=== PATIENT | female | born 1955 | race Caucasian/White ===

== ENCOUNTER 2023-09-06 23:52 | Inpatient (IN) | payer OTHER, SELFPAY ==
[2023-09-06] VITALS (7 sets, daily range): BP systolic 109–122; BP diastolic 42–62; PULSE 2–122; BMI 49.4
[2023-09-06 21:59] LABS: % Basophils 0.5 % (0-2); % Eosinophils 6.7 % (0-6); % Immature Granulocytes 0.5 % (0-0.5); % Lymphocytes 11.1 % (20.5-51.1); % Monocytes 8.9 % (1.7-9.3); % Neutrophils 72.3 % (42.2-75.2); Absolute Eosinophils 0.3 10^3/uL (0-0.7); Absolute Lymphocytes 0.5 10^3/uL (1.2-3.4); Absolute Monocytes 0.4 10^3/uL (0.1-0.6); Hematocrit 24.4 % (37.0-47.0); Hemoglobin 7.6 g/dL (12.0-16.0); Mean Corp Hgb Conc. 31.1 g/dL (33.0-37.0); Mean Corpuscular Hgb 26.6 pg (27.0-31.0); Mean Corpuscular Volume 85.3 fL (81.0-99.0); Mean Platelet Volume 9.4 fL (7.4-10.4); Nucleated Red Blood Cells % 0 %; Platelet Count 127 10^3/uL (130-400); Red Blood Cell Count 2.86 10^6/uL (4.20-5.40); White Blood Cell Count 4.2 10^3/uL (4.8-10.8)
[2023-09-06 22:10] LABS: INR 2.82
[2023-09-06 22:12] LABS: Lactic Acid 1.2 mmol/L (0.7-2.0)
--- NOTE | 2023-09-06 22:20 | ED.GENMED ---
History of Present Illness
General
Chief Complaint: Breathing Problem
Source: patient
Exam Limitations: none
Time Seen by Provider: 09/06/23 22:12
Travel History
Have you had any contact with someone who has COVID-19?: No
Do you have any symptoms of coronavirus? Fever > 100 degrees, chills, cough, shortness of breath, sore throat, loss of taste or smell, muscle aches, or headache?: No
History of Present Illness
History of Present Illness:
See MDM
Past History
Past History
ED Past Medical History: Arrthythmia, CHF, COPD and HTN
ED Past Surgical History: None
Social History
Tobacco: Non-smoker
Alcohol: None
Phy Exam
Physical Exam
Physical Exam:
See MDM
Scores
Heart Failure Risk
Heart Failure Risk Score: Yes
History of Stroke or TIA: No
History of intubation for respiratory distress: No
Heart rate on ED arrival >/= 110: Yes
SaO2 <90% on arrival on room air: Yes
HR >/=110 during 3min walk test (or too ill to perform test): Yes
ECG has acute ischemic changes: No
Urea >/=12mmol/L (BUN 33.6mg/dL): No
Serum CO2>/=35mmol/L: No
Troponin I or T elevated to AR Level (0.4mg/dL): No
NT-proBNP >/=5,000ng/L (5,000pg/ml): No
HF Risk Score: 3
Admission Status: HIGH RISK 15.9% Consider SNF treatment or admission to hospital
Course
Orders/Labs/Results
Orders:
Orders
09/06/23 21:38
Electrocardiogram (*1) Urgent
Reason for Study: Other
Other Reason for Exam: Respiratory Distress
Cardiac Monitoring- Treatment ONCE
EKG- Treatment ONCE
IV Insert/Care/Rem.- Treatment PRN
CR Chest Portable - 1 View Urgent
Comment:
Reason For Exam: respiratory distress
Reason Study Needs to be Portable: Patient Unstable
O2 Therapy [RESP] Urgent
Titrate/Wean O2 to maintain O2 sat greater than (%): 93
Special Instructions: TO MAINTAIN CONTINUOUS O2 SATS >/= 93%
Pulse Ox/cont/shift [RESP] Urgent
Quantity: 1
Special Instructions: continuous pulse ox
09/06/23 21:54
Complete Blood Count/With Diff Urgent
Comprehensive Metabolic Panel Urgent
Lactic Acid Q4H
Comment: WITH 1ST SET OF BLOOD CULTURES,CANCEL 2ND LACTIC ACID IF FIRST <2
NT-proBNP Urgent
Prothrombin Time Urgent
Troponin I Urgent
Blood Culture Q30M
LEATHA Source: Blood/Venous
Specimen Description:
Comment: FROM SEPARATE SITES
09/06/23 22:20
Furosemide [Lasix] 80 mg IV NOW STA
09/06/23 22:28
COVID-19 Antigen Urgent
Source: Nasal Swab
Blood Culture Q30M
LEATHA Source: Blood/Venous
Specimen Description:
Comment: FROM SEPARATE SITES
Abnormal Lab Results
09/06/23
21:54
WBC 4.2 L 10^3/uL
(4.8-10.8)
RBC 2.86 L 10^6/uL
(4.20-5.40)
Hgb 7.6 L g/dL
(12.0-16.0)
Hct 24.4 L %
(37.0-47.0)
MCH 26.6 L pg
(27.0-31.0)
MCHC 31.1 L g/dL
(33.0-37.0)
RDW 20.0 H %
(11.5-14.5)
Plt Count 127 L 10^3/uL
(130-400)
Absolute Lymphs (auto) 0.5 L 10^3/uL
(1.2-3.4)
Lymphocytes % 11.1 L %
(20.5-51.1)
Eosinophils % 6.7 H %
(0-6)
PT 30.0 H Sec
(11.4-14.6)
Carbon Dioxide 35 H mmol/L
(22-30)
BUN 25 H mg/dl
(7-17)
Creatinine 1.1 H mg/dL
(0.6-1.0)
Glucose 116 H mg/dl
(70-99)
Calcium 8.1 L mg/dl
(8.4-10.2)
Albumin 3.0 L g/dl
(3.5-5.0)
09/06/23 21:54
09/06/23 21:54
Vital Signs
Initial and Last Documented VS:
Initial Vital Signs
Pulse Resp Pulse Ox
101 28 98
09/06/23 21:40 09/06/23 21:40 09/06/23 21:40
Last Documented Vital Signs
Temp Pulse Resp BP Pulse Ox
98.7 F 94 28 121/42 99
09/06/23 21:41 09/06/23 22:30 09/06/23 22:30 09/06/23 22:30 09/06/23 22:30
MDM/Problems Addressed
Differential Diagnosis Includes:
HPI and MDM Narrative:
68-year-old female presenting with shortness of breath. Patient noticed worsening symptoms over the past few days. She has a history of COPD and CHF. Patient was placed on BiPAP which was continued on arrival. Patient states she required
admission to an outside hospital few weeks ago for CHF exacerbation.
On arrival, respiratory continue BiPAP. Patient feeling somewhat better. She states she is on 3 to 3-1/2 L of oxygen chronically. She is on BiPAP at nighttime as well. She takes Bumex. She has history of paroxysmal A-fib on Xarelto and states
she was recently cardioverted. Patient currently in A-fib
Given her significant respiratory distress, will continue BiPAP. Portable chest x-ray confirms pulmonary edema. Will give IV Lasix
Physical exam
General: Uncomfortable, respiratory distress
HEENT: protecting airway
Neck: supple
CV: No evidence of cyanosis. Tachycardic and regular
Resp: No accessory muscle use. Crackles throughout
Abd: Non-distended
Extremities: Significant chronic appearing bilateral leg edema with venous stasis skin changes
Neuro: alert
Psych: Mildly anxious
Skin: Intact
Problems Addressed including Acute and Chronic Conditions affecting care:
1. CHF exacerbation
Acuity: acute
Prognosis: unstable
Details: Will continue BiPAP. Will give IV light
2. Hypoxia
Acuity: acute
Prognosis: stable
Details: Will continue BiPAP and supplemental oxygen
Updates
After Lasix, patient feeling somewhat better. Will continue BiPAP and admit
Differential Diagnosis (but not limited to): Pneumonia, CHF exacerbation, A-fib
Testing considered: D-dimer but she is anticoagulated
Drug therapy (if applicable): OTC meds, please see d/c instruction regarding Rx drugs
Amount and/or Complexity of Data Reviewed
Clinical info obtained from: Patient
External data reviewed: N/A
Labs I independently reviewed (but not limited to): Elevated BNP
Radiology: X-ray independently reviewed: Chest x-ray consistent with pulmonary edema
Pulse Ox: hypoxic
EKG independently reviewed: A-fib, normal axis, no STEMI
Packaging Supervisor: A-fib
Critical Care: The high probability of a clinically significant, sudden or life threatening deterioration of the cardiopulmonary system(s) required my full and direct attention, intervention and personal management. The aggregate critical care time
was 33 minutes. This time is in addition to time spent performing reported procedures but includes the following:
[x] Data Review and interpretation
[x] Patient assessment and monitoring of vital signs
[x] Documentation
[x] Medication orders and management
Risk of Complication:
Social Determinants of health: Good social support
Discussed with other providers: Hospitalist
Escalation of Care includes Admit/Obs: Given the pulm edema BiPAP, will continue Lasix and admit
Occasional wrong word or 'sound a like' substitutions may have occurred due to the inherent limitations of voice recognition software. Read the chart carefully and recognize, using context, where substitutions have occurred.
*Critical Care Note
Total Time (30-74mins, 75-104mins- exclusive of procedures): 33 min
ED Attending Note
-
Portions of this chart may have been created with voice recognition software.� Occasional wrong word or��sound alike� substitutions may have occurred due to the inherent limitations of voice recognition software.
Discharge Plan
Departure
Patient Disposition: Admit
Date of Disposition: 09/06/23
Time of Disposition: 23:01
Admit to: Telemetry
Presentation/result/management discussed w/ accepting MD/DO: Hospitalist
Discharge Problem:
Pulmonary edema, Hypoxia, Anemia
Prescriptions:
No Action
acetaminophen 325 mg Tablet
650 mg PO Q6H PRN (Reason: mild pain)
ipratropium-albuterol 0.5 mg-3 mg(2.5 mg base)/3 mL Solution For Nebulization
3 ml INHALATION R Q6 PRN (Reason: sob/wheezing)
ipratropium-albuterol 0.5 mg-3 mg(2.5 mg base)/3 mL Solution For Nebulization
3 ml INHALATION R QID
ammonium lactate 12 % Lotion
1 applic TOPICAL BID
Patient Comments:
09/06/2023: apply to affected leg, for bacterial infection of leg
lorazepam 0.5 mg Tablet
0.5 mg PO Q4H PRN (Reason: anxiety)
ferrous sulfate 325 mg (65 mg iron) Tablet
325 mg PO DAILY
docusate sodium 100 mg Capsule
100 mg PO DAILY PRN (Reason: constipation)
bumetanide 1 mg Tablet
1 mg PO DAILY
metoprolol succinate 25 mg Tablet Extended Release 24 Hr
25 mg PO DAILY
loratadine [Claritin] 10 mg Tablet
10 mg PO DAILY
carboxymethylcellulose sodium [Refresh Plus] 0.5 % Dropperette
1 drp BOTH EYES Q12H PRN (Reason: dry eyes)
sodium chloride 0.65 % Aerosol,[place]
1 spray INTRANASAL PRN PRN (Reason: rhinitis)
rivaroxaban 20 mg Tablet
20 mg PO DAILY
Spiriva Respimat 2.5 mcg/actuation Mist
1 inh INHALATION R DAILY
fluticasone furoate-vilanterol [Breo Ellipta] 100-25 mcg/dose Blister With Device
1 inh INHALATION R DAILY
zinc oxide 20 % Paste
1 ea TOPICAL TID
Patient Comments:
09/06/2023: apply intergluteal cleft
Interventions
Interventions:
*Risk Screen - Suicide Last Done: 09/06/23 21:41
*General Assessment Last Done: 09/06/23 22:12
*Neglect/Abuse Screening Last Done: 09/06/23 21:41
ED- Fall Risk Assessment Last Done: 09/06/23 21:41
*ED COVID-19 Vaccine History Last Done: 09/06/23 21:41
ED- Cardiac Assessment Last Done: 09/06/23 22:10
ED- Pulmonary Assessment Last Done: 09/06/23 22:10
Discharge Date and Time
Print Language: ICELANDIC
[2023-09-06 22:25] LABS: NT-proBNP 2580 pg/ml; Troponin I < 0.012 ng/ml
[2023-09-06 22:26] LABS: ALT (SGPT) 12 U/L (0-35); AST (SGOT) 20 U/L (14-36); Alkaline Phosphatase 70 U/L (38-126); Blood Urea Nitrogen 25 mg/dl (7-17); Calcium 8.1 mg/dl (8.4-10.2); Carbon Dioxide 35 mmol/L (22-30); Estimated Creatinine Clearance 82 ml/min; Glucose 116 mg/dl (70-99); Total Bilirubin 0.7 mg/dl (0.2-1.3); Total Protein 6.8 g/dl (6.3-8.2); eGFR 54.73
[2023-09-06] MEDS: LASIX 80 MG IV (22:27)
[2023-09-06 22:41] LABS: Chloride 98 mmol/L (98-107); Potassium 4.6 mmol/L (3.5-5.1); Sodium 135 mmol/L (135-145)
[2023-09-06 22:51] LABS: COVID-19 Antigen Negative (Negative)
--- NOTE | 2023-09-06 23:41 | HPS.HSE ---
Family Physician
-
Family Physician: Fermín Jon
Chief Complaint
-
Shortness of breath
History of Present Illness
This is a 68-year-old female with past medical history significant for CHF, COPD chronically on 3 L and has been on BiPAP intermittently at the retirement facility, atrial fibrillation, morbid obesity who presents to the emergency department
from [facility] where she is undergoing rehab for worsening shortness of breath over the last 3 days.
She was recently admitted at [facility] for Similar Symptoms. She Was Diagnosed with Congestive Heart Failure, Pneumonia Was Ruled out. She Also Had Hemoptysis and Had to Be Intubated for Airway Protection. Bronc was avoided bleeding stopped
spontaneously. She had to be transfused with 1 unit of blood for hemoglobin of 7.8. Patient reports known history of iron deficiency anemia status post colonoscopy about 20 years ago.
Since her discharge from the hospital the patient had been improving up until about 4 days ago. She reported that she has not been getting her diuretics as well as her inhaler treatments for about 4 days. She started complaining 2 days ago. Today
an x-ray was performed and patient was noted to have pulmonary edema and was sent to the emergency department.
She denies any fevers or chills. She reports a chronic cough with white sputum and unchanged from baseline. She denies any nausea or vomiting.
In the ED she arrived on BiPAP with a temperature of 98, blood pressure 121/40, pulse of 94, respiratory rate of 28 and
Percent on BiPAP. ECG shows atrial fibrillation at a rate of [address] or T wave changes. Chest x-ray with pulmonary interstitial edema and no consolidations or effusions. CBC was mostly unremarkable except for hemoglobin of 7.6
and a platelet of 127. Chemistries notable for a creatinine of 1.1, potassium 4.6 bicarb of 35. proBNP was 2500.
Medical History
Past Medical History
Past Medical History: Reports Arrhythmia, CHF and COPD
Additional Past Medical History:
Atrial fibrillation
Past Surgical History: Reports None
Social History
Tobacco: Former Smoker
Alcohol: None
Drug: None
Personal: Single
Living: Long Term
Employment: Retired
Family History
Family History: Not pertinent
Allergies / Home Medications
Allergies reflects when Allergies were last updated in [facility].
Home Medications with original date entered in [facility]
Allergy/Medication List:
Allergies
Allergy/AdvReac Type Severity Reaction Status Date / Time
adhesive tape Allergy Rash Verified 09/06/23 21:39
Home Medications
acetaminophen 325 mg tablet 650 mg PO Q6H PRN mild pain 09/06/23
ammonium lactate 12 % lotion 1 applic topical BID 09/06/23
bumetanide 1 mg tablet 1 mg PO DAILY 09/06/23
carboxymethylcellulose sodium 0.5 % eye drops in a dropperette (Refresh Plus) 1 drp BOTH EYES Q12H PRN dry eyes 09/06/23
docusate sodium 100 mg capsule 100 mg PO DAILY PRN constipation 09/06/23
ferrous sulfate 325 mg (65 mg iron) tablet 325 mg PO DAILY 09/06/23
fluticasone furoate 100 mcg-vilanterol 25 mcg/dose inhalation powder (Breo Ellipta) 1 inh inhalation R DAILY 09/06/23
ipratropium 0.5 mg-albuterol 3 mg (2.5 mg base)/3 mL nebulization soln 3 ml inhalation R Q6 PRN sob/wheezing 09/06/23
ipratropium 0.5 mg-albuterol 3 mg (2.5 mg base)/3 mL nebulization soln 3 ml inhalation R QID 09/06/23
loratadine 10 mg tablet (Claritin) 10 mg PO DAILY 09/06/23
lorazepam 0.5 mg tablet 0.5 mg PO Q4H PRN anxiety 09/06/23
metoprolol succinate 25 mg tablet,extended release 24 hr 25 mg PO DAILY 09/06/23
rivaroxaban 20 mg tablet 20 mg PO DAILY 09/06/23
sodium chloride 0.65 % nasal spray aerosol 1 spray intranasal PRN PRN rhinitis 09/06/23
tiotropium bromide 2.5 mcg/actuation mist for inhalation (Spiriva Respimat) 1 inh inhalation R DAILY 09/06/23
zinc oxide 20 % topical paste 1 ea topical TID 09/06/23
Review of Systems
-
History Source: Patient
Constitutional: Reports No Symptoms
EENT: Reports No Symptoms
Respiratory: Reports Cough and Trouble Breathing
Cardiac: Reports No Symptoms
Abdomen/GI: Reports No Symptoms
: Reports No Symptoms
Musculoskeletal: Reports No Symptoms
Skin: Reports No Symptoms
Neurological: Reports No Symptoms
Endocrine: Reports No Symptoms
Hematologic/Lymphatic: Reports No Symptoms
Psych: Reports No Symptoms
Physical Exam
Vital Signs
Vital Signs
Temp Pulse Resp BP Pulse Ox
98.7 F 96 15 122/62 97
09/06/23 21:41 09/06/23 23:30 09/06/23 23:30 09/06/23 23:30 09/06/23 23:15
Physical Exam
General: Well Developed, Respiratory Distress and Morbidly Obese
HEENT: NormoCephalic, Anicteric, Moist mucous membranes, Atraumatic, PERRLA and Oxygen
Respiratory: Wheezes, Crackles and Decreased Breath Sounds
Cardiac: S1/S2, Irregular Rhythm and Peripheral Edema
Breast: Deferred by me
GI: Soft, Non Tender and Non Distended
Rectal: Deferred by Provider
Genito-urinary: Deferred by me
Musculoskeletal: No Clubbing, No Cyanosis, Edema, Left Lower Extremity and Edema, Right Lower Extremity
Skin: Warm, Dry and Rash
Neuro: AO x 3
Hematologic/Lymphatic: No Lymphadenopathy
Psych: Calm
Laboratory Results
-
09/06/23 21:54
09/06/23 21:54
Laboratory Results
PT 30.0 Sec (11.4-14.6) H 09/06/23 21:54
INR 2.82 09/06/23 21:54
Lactic Acid 1.2 mmol/L (0.7-2.0) 09/06/23:54
Total Bilirubin 0.7 mg/dl (0.2-1.3) 09/06/23:54
AST 20 U/L (14-36) 09/06/23:54
ALT 12 U/L (0-35) 09/06/23:54
Alkaline Phosphatase 70 U/L (38-126) 09/06/23:54
Troponin I < 0.012 ng/ml 09/06/23:54
Data Reviewed
-
Diagnostic Radiology: Image Personally Visualized and interpreted and Report Reviewed by me
Medical Tests (Nuc Med, Echo, EKG etc): Report Reviewed by me
Lab Data: Labs Reviewed by me
Old Records: Reviewed
Impression/Plan
-
IMPRESSION:
68 F with h/o AFIB, CHF, COPD on 3 L home O2 and BIPAP dependent intermittently who presents with shortness of breath worsening over 3 days after not receiving diuretics and inhalers at rehab. No fevers or chills. Xray with pulm edema and w/o
consolidation. Lungs with crackles and wheezes. Cough productive of white sputum. No leukocytosis. ECG with afib, rate controlled.
PLAN:
1. COPD Exacerbation - Moderate COPD exacerbation in patient with significantly poor baseline. No signs of acute infection. WOB noted, improving on bipap.
- admit to IMU for now
- continue bipap 10/5
- prednisone 40mg iv q 12
- continue duonebs RTC and prn
- continue long acting inhaled beta agonist and inhaled steroids for now
- she is dependent on bipap hs and unlikely to be weaned off prior to discharge.
2. CHF exacerbation - Mild CHF exacerbation in the setting of interrupted meds. Peripheral edema noted, improved compared to prior hospitalization. Elevated BNP.
- lasix 60 mg iv q 12 for now
- daily weights and i/os
- fluid and salt restriction
3.AFIB - Rate is moderately controlled
- continue ac with rivaroxaban
- continue metoprolol 25 daily
-
4. TANIA - Chronic TANIA. Hgb 7.6
- transfuse of hgb < 7
- check iron panel in am
DVT PPX - On rivaroxaban
Full Code
[2023-09-07] VITALS (16 sets, daily range): BP systolic 106–137; BP diastolic 55–81; PULSE 2–80; O2SAT 90; BMI 43.0
[2023-09-07] MEDS: SOLU-MEDROL PF 40 MG IV ×3 (01:28→21:10)
--- NOTE | 2023-09-07 02:42 | PTCARENOTE ---
pt admitted from the ED- pt is AAOx3- VSS. pt tearful about situation, wishing she could go home. a-fib on the monitor. arrived on bipap 96%. PW intact, MASD to groin and under breasts, will order desenex. left posterior thigh DTI- foam applied. pt
is tachypneic, and SOB on exertion. pt oriented to room, call duran within reach, care ongoing.
[2023-09-07 05:16] LABS: Hematocrit 26.5 % (37.0-47.0); Hemoglobin 8.4 g/dL (12.0-16.0); Mean Corp Hgb Conc. 31.7 g/dL (33.0-37.0); Mean Corpuscular Volume 85.2 fL (81.0-99.0); Mean Platelet Volume 9.6 fL (7.4-10.4); Platelet Count 144 10^3/uL (130-400); Red Blood Cell Count 3.11 10^6/uL (4.20-5.40); Red Cell Dist. Width 19.9 % (11.5-14.5); White Blood Cell Count 4.7 10^3/uL (4.8-10.8)
[2023-09-07 05:42] LABS: Blood Urea Nitrogen 24 mg/dl (7-17); Calcium 8.4 mg/dl (8.4-10.2); Carbon Dioxide 33 mmol/L (22-30); Chloride 100 mmol/L (98-107); Estimated Creatinine Clearance 76 ml/min; Glucose 128 mg/dl (70-99); Potassium 4.5 mmol/L (3.5-5.1); Sodium 137 mmol/L (135-145); eGFR 54.73
[2023-09-07] MEDS: SYMBICORT 80/4.5 MCG INHALER 2 PUFF INH ×2 (07:56→19:39)
[2023-09-07] MEDS: DUONEB 3 ML INH ×4 (07:57→19:38)
[2023-09-07] MEDS: SPIRIVA RESPIMAT 2.5 MCG 1 PUFF INH (07:57)
[2023-09-07] MEDS: LASIX 60 MG IV ×2 (08:07→15:13)
[2023-09-07] MEDS: TOPROL XL 25 MG PO (08:08)
[2023-09-07] MEDS: DESENEX/MITRAZOL/ZEASORB 1 APPLIC TOPICAL ×2 (08:08→20:19)
[2023-09-07] MEDS: CLARITIN 10 MG PO (08:08)
[2023-09-07] MEDS: XARELTO 20 MG PO (08:08)
[2023-09-07] MEDS: FEOSOL PO (08:09)
[2023-09-07] MEDS: LAC HYDRIN, AM LACTIN LOTION 1 APPLIC TOPICAL ×2 (08:16→20:20)
[2023-09-07] MEDS: ZINC OXIDE OINTMENT 1 APPLIC TOPICAL ×3 (08:16→21:10)
--- NOTE | 2023-09-07 09:50 | CARDSERVLU ---
Echocardiogram with Lumason completed after protocol screening completed. Allergies verified.
Patent IV site: __R AC___
IV site flushed with 0.9% NaCl pre and post administration.
Diluted bolus method utilized to enhance visualization of ventricular garcia.
Total volume given: __2.5__ mL
Patient tolerated all procedures well without complications.
--- NOTE | 2023-09-07 10:00 | PTCARENOTE ---
Patient with labored breathing this morning, dyspnea at rest, trailing off at end of sentences. She reports she is struggling to breath. RT to bedside and patient placed back on BiPAP. Morning Lasix IV given, pt able to urinate 850 mls. Pt feeling
better following 2 hours of BiPAP. Then PT worked with patient and she got into the chair. PT then needing BSC and pt assisted x2 out of chair onto commode. Pt remains on 5L NC. Pt has no complaints at this time. Assessment, care and VS as charted.
--- NOTE | 2023-09-07 10:05 | RESPNOTE ---
patient with more urine output this morning after LASIX, WOB improved. break from bipap at this time. patient now on 5L O2, SpO2 94%, RR 20. ready for breakfast. baseline O2 3.5-4L.
[2023-09-07] MEDS: FEOSOL 325 MG PO (15:36)
--- NOTE | 2023-09-07 15:53 | W.PN.HOSP.TC ---
Today's Communication/Plan
-
cont iv diuresis
iv steroids
wean o2
Assessment / Plan
Assessment / Plan
Physical Exam
General: Well Developed, Respiratory Distress and Morbidly Obese
HEENT: NormoCephalic, Anicteric, Moist mucous membranes, Atraumatic, PERRLA and Oxygen
Respiratory: Wheezes, Crackles and Decreased Breath Sounds
Cardiac: S1/S2, Irregular Rhythm and Peripheral Edema
Breast: Deferred by me
GI: Soft, Non Tender and Non Distended
Rectal: Deferred by Provider
Genito-urinary: Deferred by me
Musculoskeletal: No Clubbing, No Cyanosis, Edema, Left Lower Extremity and Edema, Right Lower Extremity
Skin: Warm, Dry and Rash
Neuro: AO x 3
Hematologic/Lymphatic: No Lymphadenopathy
Psych: Calm
IMPRESSION:
68 F with h/o AFIB, CHF, COPD on 3 L home O2 and BIPAP dependent intermittently who presents with shortness of breath worsening over 3 days after not receiving diuretics and inhalers at rehab. No fevers or chills. Xray with pulm edema and w/o
consolidation. Lungs with crackles and wheezes. Cough productive of white sputum. No leukocytosis. ECG with afib, rate controlled.
PLAN:
#COPD Exacerbation - Moderate COPD exacerbatio most likely exacerbated by CHF exac
- admit to IMU for now
- continue bipap 10/5
- prednisone 40mg iv q 12
- Cont iv diuresis
- continue duonebs RTC and prn
- continue long acting inhaled beta agonist and inhaled steroids for now
#CHF exacerbation, unknown type
-apparently some component of non compliance v needing dosage adjustment
- lasix 60 mg iv q 12 for now
- daily weights and i/os
- fluid and salt restriction
-ECHO
#AFIB - Rate is moderately controlled
- continue ac with rivaroxaban
- continue metoprolol 25 daily
#TANIA - Chronic TANIA. Hgb 7.6
- transfuse of hgb < 7
- check iron panel
DVT PPX - On rivaroxaban
Full Code
Anticipated Discharge: > 48 hours
Subjective/Interval History
-
Date of Service: September 07, 2023
Off BiPAP, feels much better
Objective Data
-
Labs:
Laboratory Results
09/07/23
04:53
WBC 4.7 L
Hgb 8.4 L
Hct 26.5 L
Plt Count 144
Sodium 137
Potassium 4.5
Chloride 100
Carbon Dioxide 33 H
BUN 24 H
Creatinine 1.1 H
Glucose 128 H
Calcium 8.4
Vital Signs:
Vital Signs
Temp Pulse Resp BP Pulse Ox
97.8 F 86 20 115/62 94
09/07/23 15:36 09/07/23 15:40 09/07/23 15:40 09/07/23 15:13 09/07/23 15:40
I&O
09/06/23 09/07/23 09/08/23
06:59 06:59 06:59
Intake Total 240 / 240
Output Total 1400 / 1400 850 / 850
Balance -1400 / -1400 -610 / -610
Review of Systems
-
History Source: Patient
All other systems: Not reviewed unless documented
Data Reviewed
-
CT Scan: Image personally visualized and interpreted and Report Reviewed by me
Labs: Labs Reviewed by me
--- NOTE | 2023-09-07 16:38 | CM ---
Addendum entered by Naty Pope RN 09/07/23 17:05:
Spoke with [facility]; the patient was there in short term rehab and not on a bed hold.
Plan continue to follow patient's mobility and home O2 needs.
Plan may benefit from home O2 assessment to qualify patient for O2 insurance coverage.
Plan home with referral to [facility].
Original Note:
Patient from [facility] with Dx COPD exacerbation, CHF exacerbation. O2 5L. BiPAP. Receiving IV Lasix, IV Solumedrol. PT Eval; requires assist of 2, recommends skilled rehab. OT Eval pending.
Met with patient, vern Smith & daughter in [facility];
the patient resides alone in a 1 story house in [place]
She does not drive and had food delivery, Meals on Wheels, PACE program and SNAP. She denies food insecurity.
The patient was independent in ADLs and ambulation at home prior to her admission to [facility], then needed assistance and went to [facility].
DME - RW, w/c, commode, grabber, leg auto body shop manager strap, lift chair, electric bed, home O2 concentrator/portable & BiPAP through [facility]
VN - prior [facility]
SNF - [facility]
PCP - Anthony Lanier
Pharmacy - [facility]
Patient, son & KIMBERLY state that [facility] SN[facility] was not a good experience and patient will not be returning there or to any other SNF. She wants to go home at d/c with [facility]. The son & DIL live near patient in [place] and can assist post
d/c.
Patient states she is paying out of pocket for home O2 ($178/month) and would like to see if she can qualify for home O2 insurance coverage prior to d/c.
Plan continue to follow patient's mobility and home O2 needs.
Plan may benefit from home O2 assessment to qualify patient for O2 insurance coverage.
Plan home with referral to [facility] .
[2023-09-07 17:29] LABS: Iron 46 ug/dl (37-170)
[2023-09-07 17:38] LABS: Percent Saturation 15 % (20-50); Total Iron Binding Capacity 294 ug/dl (265-497)
[2023-09-07 18:10] LABS: Ferritin 8.6 ng/ml (11.1-264.0)
[2023-09-07 18:30] LABS: Troponin I < 0.012 ng/ml
[2023-09-07] MEDS: MUCINEX 600 MG PO (20:20)
[2023-09-08] VITALS (16 sets, daily range): BP systolic 101–149; BP diastolic 61–101; PULSE 2–78; O2SAT 96; BMI 45.6
[2023-09-08 05:25] LABS: Hematocrit 25.4 % (37.0-47.0); Hemoglobin 7.8 g/dL (12.0-16.0); Mean Corp Hgb Conc. 30.7 g/dL (33.0-37.0); Mean Corpuscular Hgb 26.4 pg (27.0-31.0); Mean Corpuscular Volume 86.1 fL (81.0-99.0); Mean Platelet Volume 10.1 fL (7.4-10.4); Platelet Count 138 10^3/uL (130-400); Red Blood Cell Count 2.95 10^6/uL (4.20-5.40); Red Cell Dist. Width 19.3 % (11.5-14.5); White Blood Cell Count 3.5 10^3/uL (4.8-10.8)
[2023-09-08 05:51] LABS: Blood Urea Nitrogen 40 mg/dl (7-17); Calcium 8.3 mg/dl (8.4-10.2); Carbon Dioxide 35 mmol/L (22-30); Chloride 98 mmol/L (98-107); Estimated Creatinine Clearance 70 ml/min; Glucose 147 mg/dl (70-99); Potassium 4.6 mmol/L (3.5-5.1); Sodium 138 mmol/L (135-145); eGFR 49.31
[2023-09-08] MEDS: MUCINEX 600 MG PO ×2 (07:59→19:46)
[2023-09-08] MEDS: CLARITIN 10 MG PO (07:59)
[2023-09-08] MEDS: COLACE 100 MG PO (07:59)
[2023-09-08] MEDS: TOPROL XL 25 MG PO (07:59)
[2023-09-08] MEDS: FEOSOL 325 MG PO (07:59)
[2023-09-08] MEDS: LASIX 60 MG IV ×2 (08:00→15:59)
[2023-09-08] MEDS: DESENEX/MITRAZOL/ZEASORB 1 APPLIC TOPICAL ×2 (08:03→19:45)
[2023-09-08] MEDS: SYMBICORT 80/4.5 MCG INHALER 2 PUFF INH ×2 (08:03→19:53)
[2023-09-08] MEDS: SPIRIVA RESPIMAT 2.5 MCG 1 PUFF INH (08:03)
[2023-09-08] MEDS: ZINC OXIDE OINTMENT 1 APPLIC TOPICAL ×3 (08:03→21:13)
[2023-09-08] MEDS: LAC HYDRIN, AM LACTIN LOTION 1 APPLIC TOPICAL ×2 (08:03→19:45)
[2023-09-08] MEDS: DUONEB INH (08:03)
[2023-09-08] MEDS: SOLU-MEDROL PF 40 MG IV ×2 (09:39→21:13)
[2023-09-08] MEDS: VENTOLIN NEBULES 2.5 MG INH ×3 (11:19→19:53)
--- NOTE | 2023-09-08 14:07 | W.PN.HOSP.TC ---
Today's Communication/Plan
-
cont iv diuresis today - switch to PO tomorrow
Assessment / Plan
Assessment / Plan
Physical Exam
General: Well Developed, Respiratory Distress and Morbidly Obese
HEENT: NormoCephalic, Anicteric, Moist mucous membranes, Atraumatic, PERRLA and Oxygen
Respiratory: Wheezes, Crackles and Decreased Breath Sounds
Cardiac: S1/S2, Irregular Rhythm and Peripheral Edema
Breast: Deferred by me
GI: Soft, Non Tender and Non Distended
Rectal: Deferred by Provider
Genito-urinary: Deferred by me
Musculoskeletal: No Clubbing, No Cyanosis, Edema, Left Lower Extremity and Edema, Right Lower Extremity
Skin: Warm, Dry and Rash
Neuro: AO x 3
Hematologic/Lymphatic: No Lymphadenopathy
Psych: Calm
IMPRESSION:
68 F with h/o AFIB, CHF, COPD on 3 L home O2 and BIPAP dependent intermittently who presents with shortness of breath worsening over 3 days after not receiving diuretics and inhalers at rehab. No fevers or chills. Xray with pulm edema and w/o
consolidation. Lungs with crackles and wheezes. Cough productive of white sputum. No leukocytosis. ECG with afib, rate controlled.
PLAN:
#COPD Exacerbation - Moderate COPD exacerbatio most likely exacerbated by CHF exac
- admit to IMU for now
- continue bipap 10/5 as needed
- prednisone 40mg iv q 12�transition to prednisone tomorrow
- Cont iv diuresis
- continue duonebs RTC and prn
- continue long acting inhaled beta agonist and inhaled steroids for now
#CHF exacerbation, acute HFpEF
-apparently some component of non compliance v needing dosage adjustment
- lasix 60 mg iv q 12 for now
- daily weights and i/os; BMP
- fluid and salt restriction
--EF 606-65% -
-Anticipate switching back to bumex starting tomorrow
#AFIB - Rate is moderately controlled
- continue ac with rivaroxaban
- continue metoprolol 25 daily
#TANIA - Chronic TANIA. Hgb 7.6
- transfuse of hgb < 7
- check iron panel
DVT PPX - On rivaroxaban
Full Code
Anticipated Discharge: 24 - 48 hours
Subjective/Interval History
-
Date of Service: September 08, 2023
Feels better although still having exertional shortness of breath, not at baseline
Objective Data
-
Labs:
Laboratory Results
09/08/23
05:01
WBC 3.5 L
Hgb 7.8 L
Hct 25.4 L
Plt Count 138
Sodium 138
Potassium 4.6
Chloride 98
Carbon Dioxide 35 H
BUN 40 H
Creatinine 1.2 H
Glucose 147 H
Calcium 8.3 L
Vital Signs:
Vital Signs
Temp Pulse Resp BP Pulse Ox
98.2 F 66 19 104/66 96
09/08/23 11:30 09/08/23 11:31 09/08/23 11:31 09/08/23 10:14 09/08/23 11:31
I&O
09/07/23 09/08/23 09/09/23
06:59 06:59 06:59
Intake Total 240 / 240
Output Total 1400 / 1400 1300 / 1300
Balance -1400 / -1400 -1060 / -1060
Review of Systems
-
History Source: Patient
All other systems: Not reviewed unless documented
Data Reviewed
-
CT Scan: Image personally visualized and interpreted and Report Reviewed by me
Labs: Labs Reviewed by me
[2023-09-08] MEDS: XARELTO 20 MG PO (15:59)
[2023-09-09] VITALS (14 sets, daily range): BP systolic 107–149; BP diastolic 60–92; PULSE 2–80; BMI 43.7; BMI 45.2
[2023-09-09 04:34] LABS: Hematocrit 28.4 % (37.0-47.0); Hemoglobin 8.8 g/dL (12.0-16.0); Mean Corpuscular Hgb 26.3 pg (27.0-31.0); Platelet Count 150 10^3/uL (130-400); Red Blood Cell Count 3.34 10^6/uL (4.20-5.40); Red Cell Dist. Width 19.7 % (11.5-14.5); White Blood Cell Count 5.1 10^3/uL (4.8-10.8)
[2023-09-09 05:02] LABS: Blood Urea Nitrogen 48 mg/dl (7-17); Calcium 8.4 mg/dl (8.4-10.2); Carbon Dioxide 36 mmol/L (22-30); Chloride 96 mmol/L (98-107); Estimated Creatinine Clearance 65 ml/min; Glucose 145 mg/dl (70-99); Potassium 4.5 mmol/L (3.5-5.1); Sodium 137 mmol/L (135-145); eGFR 44.79
--- NOTE | 2023-09-09 05:44 | PTCARENOTE ---
pt alert and orientated x3. very upset about the senior care she came from making it very clear she does not want to go back there. pt on cpap at 11pm tolerated mask throughout the night.
[2023-09-09] MEDS: SYMBICORT 80/4.5 MCG INHALER 2 PUFF INH ×2 (07:33→19:34)
[2023-09-09] MEDS: SPIRIVA RESPIMAT 2.5 MCG 1 PUFF INH (07:33)
[2023-09-09] MEDS: VENTOLIN NEBULES 2.5 MG INH ×4 (07:33→19:34)
[2023-09-09] MEDS: COLACE 100 MG PO (08:30)
[2023-09-09] MEDS: DELTASONE 40 MG PO (08:30)
[2023-09-09] MEDS: TOPROL XL 25 MG PO (08:31)
[2023-09-09] MEDS: FEOSOL 325 MG PO (08:31)
[2023-09-09] MEDS: ZINC OXIDE OINTMENT 1 APPLIC TOPICAL ×3 (08:31→21:27)
[2023-09-09] MEDS: DESENEX/MITRAZOL/ZEASORB 1 APPLIC TOPICAL ×2 (08:31→20:12)
[2023-09-09] MEDS: MUCINEX 600 MG PO ×2 (08:31→20:12)
[2023-09-09] MEDS: XARELTO 20 MG PO (08:31)
[2023-09-09] MEDS: CLARITIN 10 MG PO (08:31)
[2023-09-09] MEDS: BUMEX 2 MG PO (08:31)
[2023-09-09] MEDS: LAC HYDRIN, AM LACTIN LOTION 1 APPLIC TOPICAL ×2 (08:32→20:12)
--- NOTE | 2023-09-09 09:22 | PTCARENOTE ---
Assumed care of pt from night RN. Pt AAOx3, able to make needs known. Had c/o constipation, Miralax ordered daily and Colace changed to straight ordered. Pt repositioned in bed frequently. Will encourage pt to get OOB to chair. Will continue to
monitor through shift.
[2023-09-09] MEDS: MIRALAX 17 GRAMS PO (09:28)
--- NOTE | 2023-09-09 13:34 | W.PN.HOSP.TC ---
Today's Communication/Plan
-
switch to 2gm bumex and monitor BMP
Switch to pred taper
DC ready - CM aware - needs facility placement
Assessment / Plan
Assessment / Plan
Physical Exam
General: Well Developed, Respiratory Distress and Morbidly Obese
HEENT: NormoCephalic, Anicteric, Moist mucous membranes, Atraumatic, PERRLA and Oxygen
Respiratory: Wheezes, Crackles and Decreased Breath Sounds
Cardiac: S1/S2, Irregular Rhythm and Peripheral Edema
Breast: Deferred by me
GI: Soft, Non Tender and Non Distended
Rectal: Deferred by Provider
Genito-urinary: Deferred by me
Musculoskeletal: No Clubbing, No Cyanosis, Edema, Left Lower Extremity and Edema, Right Lower Extremity
Skin: Warm, Dry and Rash
Neuro: AO x 3
Hematologic/Lymphatic: No Lymphadenopathy
Psych: Calm
IMPRESSION:
68 F with h/o AFIB, CHF, COPD on 3 L home O2 and BIPAP dependent intermittently who presents with shortness of breath worsening over 3 days after not receiving diuretics and inhalers at rehab. No fevers or chills. Xray with pulm edema and w/o
consolidation. Lungs with crackles and wheezes. Cough productive of white sputum. No leukocytosis. ECG with afib, rate controlled.
PLAN:
#COPD Exacerbation - Moderate COPD exacerbatio most likely exacerbated by CHF exac
- admit to IMU for now
- continue bipap 10/5 as needed
- prednisone 40mg iv q 12�transition to prednisone today - can dc on steroid taper
- IV diuresis - changed to 2mg bumex
- continue duonebs RTC and prn
- continue long acting inhaled beta agonist and inhaled steroids for now
#CHF exacerbation, acute HFpEF
-apparently some component of non compliance v needing dosage adjustment
- lasix 60 mg iv q 12 - switched to 2mg bumex (was on 1mg and appears not to have been effective) - should cont monitoring bmp
- daily weights and i/os; BMP
- fluid and salt restriction
--EF 60-65% -
#AFIB - Rate is moderately controlled
- continue ac with rivaroxaban
- continue metoprolol 25 daily
#TANIA - Chronic TANIA. Hgb 7.6
- transfuse of hgb < 7
- check iron panel: start iron supplementation
DVT PPX - On rivaroxaban
Full Code
DC ready - CM aware - pending bed placement
Anticipated Discharge: 24 - 48 hours
Subjective/Interval History
-
Date of Service: September 09, 2023
feels better
Objective Data
-
Labs:
Laboratory Results
09/09/23
04:05
WBC 5.1
Hgb 8.8 L
Hct 28.4 L
Plt Count 150
Sodium 137
Potassium 4.5
Chloride 96 L
Carbon Dioxide 36 H
BUN 48 H
Creatinine 1.3 H
Glucose 145 H
Calcium 8.4
Vital Signs:
Vital Signs
Temp Pulse Resp BP Pulse Ox
97.6 F 76 20 131/89 96
09/09/23 11:20 09/09/23 11:37 09/09/23 11:37 09/09/23 08:31 09/09/23 11:37
I&O
09/08/23 09/09/23 09/10/23
06:59 06:59 06:59
Intake Total 240 / 240 480 / 480
Output Total 1300 / 1300 2200 / 2200 450 / 450
Balance -1060 / -1060 -1720 / -1720 -450 / -450
Review of Systems
-
History Source: Patient
All other systems: Not reviewed unless documented
Data Reviewed
-
CT Scan: Image personally visualized and interpreted and Report Reviewed by me
Labs: Labs Reviewed by me
--- NOTE | 2023-09-09 15:13 | CM ---
regional merchandising manager reviewed patient's chart and met with patient and patient states that she does not want to return to [facility] facility, in review of chart other skilled options were reviewed and referrals sent. Patient states she wants to
return to home at discharge.
Patient states she lives in a modular home with 4 steps to enter, patient has portable oxygen from [facility], patient has walker, commode, recliner and w/c in home, patient receives from [employer], patient's son and daughter in law live
nearby and can assist patient.
Plan; Patient would like to return to home with [facility] visiting nurses, shelter case manager will follow with patient progress with physical therapy.
[2023-09-09] MEDS: FIRST-MOUTHWASH BLM SUSPENSION 5 ML PO (21:39)
--- NOTE | 2023-09-09 22:40 | PTCARENOTE ---
Assumed care of Pt from Day RN. Pt given mouth wash for soar on bottom lip, Per Pt it is from 'having my dentures in and being on BiPAP'. A light pink area was seen by this RN, nothing appearing open. Mouth and denture care performed before Pt
placed on BiPAP this evening. Pt also made her request known for going home and not to a snif or rehab. Assessment care and vitals as charted.
[2023-09-10] VITALS (15 sets, daily range): BP systolic 89–154; BP diastolic 55–87; PULSE 2–70; O2SAT 97; BMI 45.7
[2023-09-10 05:12] LABS: Hematocrit 29.5 % (37.0-47.0); Hemoglobin 8.9 g/dL (12.0-16.0); Mean Corp Hgb Conc. 30.2 g/dL (33.0-37.0); Mean Corpuscular Hgb 26.7 pg (27.0-31.0); Mean Corpuscular Volume 88.6 fL (81.0-99.0); Mean Platelet Volume 9.9 fL (7.4-10.4); Platelet Count 138 10^3/uL (130-400); Red Blood Cell Count 3.33 10^6/uL (4.20-5.40); Red Cell Dist. Width 19.6 % (11.5-14.5); White Blood Cell Count 5.5 10^3/uL (4.8-10.8)
[2023-09-10 05:27] LABS: Blood Urea Nitrogen 49 mg/dl (7-17); Calcium 8.1 mg/dl (8.4-10.2); Chloride 96 mmol/L (98-107); Estimated Creatinine Clearance 72 ml/min; Glucose 106 mg/dl (70-99); Potassium 4.3 mmol/L (3.5-5.1); Sodium 138 mmol/L (135-145); eGFR 49.31
[2023-09-10 05:42] LABS: Carbon Dioxide 39 mmol/L (22-30)
--- NOTE | 2023-09-10 06:24 | W.PN.HOSP.TC ---
Today's Communication/Plan
-
dc planning
Assessment / Plan
Assessment / Plan
Physical Exam
General: Well Developed, Respiratory Distress and Morbidly Obese
HEENT: NormoCephalic, Anicteric, Moist mucous membranes, Atraumatic, PERRLA and Oxygen
Respiratory: Wheezes, Crackles and Decreased Breath Sounds
Cardiac: S1/S2, Irregular Rhythm and Peripheral Edema
GI: Soft, Non Tender and Non Distended
Rectal: No rectal bleeding
Genito-urinary: No hematuria
Musculoskeletal: No Clubbing, No Cyanosis, Edema, Left Lower Extremity and Edema, Right Lower Extremity
Skin: Warm, Dry and Rash
Neuro: AO x 3
Hematologic/Lymphatic: No Lymphadenopathy
Psych: Calm
IMPRESSION:
68 F with h/o AFIB, CHF, COPD on 3 L home O2 and BIPAP dependent intermittently who presents with shortness of breath worsening over 3 days after not receiving diuretics and inhalers at rehab. No fevers or chills. Xray with pulm edema and w/o
consolidation. Lungs with crackles and wheezes. Cough productive of white sputum. No leukocytosis. ECG with afib, rate controlled.
PLAN:
#COPD Exacerbation - Moderate COPD exacerbation most likely exacerbated by CHF exac
Chronic hypoxic respiratory failure with hypercapnia , on 3-4 liters of O2
No worsening hypoxia or sob
- continue bipap 10/5 as needed
- prednisone 40mg iv q 12�transition to prednisone - can dc on steroid taper
- IV diuresis - changed to 2mg Bumex
- continue DuoNeb RTC and prn
- continue long acting inhaled beta agonist and inhaled steroids for now
#CHF exacerbation, acute HFpEF
-apparently some component of non compliance v needing dosage adjustment
- lasix 60 mg iv q 12 - switched to 2mg Bumex (was on 1mg and appears not to have been effective) - should cont monitoring bmp
- daily weights and i/os; BMP
- fluid and salt restriction
--EF 60-65% -
#Thrombophilia
#ZOHREH on CPAP
#Morbid obesity. BMI 45
#Paroxysmal a-fib
#AFIB - Rate is moderately controlled
- continue ac with rivaroxaban
- continue metoprolol 25 daily
# Stage 3a chronic kidney disease
Creatinine around 1.2
#TANIA - Chronic TANIA. Hgb 7.6
- transfuse of hgb < 7
- check iron panel: start iron supplementation
DVT PPX - On rivaroxaban
Full Code
Total time spent to see the patient, examine the patient, review data and lab results, discuss treatment plan with patient, nursing staff around 55 minutes
Anticipated Discharge: Within 24 hours
Subjective/Interval History
-
Date of Service: September 10, 2023
No chest pain
She feels better
Objective Data
-
Labs:
Laboratory Results
09/10/23
04:51
WBC 5.5
Hgb 8.9 L
Hct 29.5 L
Plt Count 138
Sodium 138
Potassium 4.3
Chloride 96 L
Carbon Dioxide 39 H
BUN 49 H
Creatinine 1.2 H
Glucose 106 H
Calcium 8.1 L
Vital Signs:
Vital Signs
Temp Pulse Resp BP Pulse Ox
97.3 F 66 18 154/82 97
09/10/23 03:44 09/10/23 06:00 09/10/23 06:00 09/10/23 06:00 09/10/23 06:00
I&O
09/08/23 09/09/23 09/10/23
06:59 06:59 06:59
Intake Total 240 / 240 480 / 480 1360 / 1360
Output Total 1300 / 1300 2200 / 2200 1600 / 1600
Balance -1060 / -1060 -1720 / -1720 -240 / -240
[2023-09-10] MEDS: VENTOLIN NEBULES 2.5 MG INH ×4 (08:14→19:22)
[2023-09-10] MEDS: SYMBICORT 80/4.5 MCG INHALER 2 PUFF INH ×2 (08:14→19:22)
[2023-09-10] MEDS: SPIRIVA RESPIMAT 2.5 MCG 1 PUFF INH (08:14)
[2023-09-10] MEDS: DELTASONE 40 MG PO (08:37)
[2023-09-10] MEDS: XARELTO 20 MG PO (08:37)
[2023-09-10] MEDS: FEOSOL 325 MG PO (08:37)
[2023-09-10] MEDS: TOPROL XL 25 MG PO (08:38)
[2023-09-10] MEDS: BUMEX 2 MG PO (08:38)
[2023-09-10] MEDS: CLARITIN 10 MG PO (08:38)
[2023-09-10] MEDS: COLACE 100 MG PO (08:38)
[2023-09-10] MEDS: MUCINEX 600 MG PO ×2 (08:39→20:24)
[2023-09-10] MEDS: MIRALAX 17 GRAMS PO ×2 (08:39→18:00)
[2023-09-10] MEDS: ZINC OXIDE OINTMENT 1 APPLIC TOPICAL ×3 (08:40→21:39)
[2023-09-10] MEDS: LAC HYDRIN, AM LACTIN LOTION 1 APPLIC TOPICAL ×2 (08:40→20:24)
[2023-09-10] MEDS: DESENEX/MITRAZOL/ZEASORB 1 APPLIC TOPICAL ×2 (08:41→20:24)
--- NOTE | 2023-09-10 16:06 | CM ---
Addendum entered by Naty Pope RN 09/10/23 16:21:
IMM completed.
Original Note:
Patient from [facility] with Dx COPD exacerbation, CHF exacerbation. O2 2L. BiPAP. PT Eval; recommends skilled rehab. OT recommends skilled v HH. Home O2 Assessment today.
Met with patient and spoke with son multiple times today; lots of discussion about SNF vs home. Initially patient wanted to return home but after working with respiratory therapy and speaking with MD but decided she will go to SNF for short term
rehab. Discussed multiple facilities near [place], gave choices of 4 accepting SNFs and provided [facility] ratings. Patient chose [facility].
Spoke with Jaylon Reina [facility] SNF; they are able to accept the patient. She will begin working on insurance auth.
Spoke with Izabel Beasley [facility], [place]; she states that patient is receiving home O2 concentrator & portables, and home NIV unit under insurance with 80% coverage. The patient pays 20% charge of $169.30 for NIV and 20% charge of
$4.45 for home O2, and DME company charges $178/month total. Explained to patient and son that patient is getting her home O2 covered by her insurance.
Plan [facility] SNF by bariatric ambulance once insurance approves.
--- NOTE | 2023-09-10 17:30 | PTCARENOTE ---
Patient tolerating diet. Taking oral medications without difficulty. Cardizem shift has been weened off. Afib with PVC's on monitor, heart rates 70-90's. VS stable. Patient currently out of bed to chair. Heavy assist x 2 with rolling walker.
[2023-09-10] MEDS: SENOKOT-S 2 TABLET PO (17:51)
--- NOTE | 2023-09-10 22:50 | PTCARENOTE ---
Assumed care of pt from Day RN. Pt presents to be OK with the decision of going to another rehab instead of home with Son, emotional support given. Pt received full bed bath. Pt has no complaints at this time. Call duran within reach. Assessment care
and vitals as charted.
[2023-09-11] VITALS (14 sets, daily range): BP systolic 98–143; BP diastolic 54–83; PULSE 2–83; O2SAT 99; BMI 44.2
[2023-09-11 05:16] LABS: Hematocrit 26.6 % (37.0-47.0); Hemoglobin 8.5 g/dL (12.0-16.0); Mean Corpuscular Hgb 26.5 pg (27.0-31.0); Mean Corpuscular Volume 82.9 fL (81.0-99.0); Mean Platelet Volume 10.2 fL (7.4-10.4); Platelet Count 152 10^3/uL (130-400); Red Blood Cell Count 3.21 10^6/uL (4.20-5.40); Red Cell Dist. Width 19.6 % (11.5-14.5); White Blood Cell Count 5.4 10^3/uL (4.8-10.8)
[2023-09-11] MEDS: VENTOLIN NEBULES 2.5 MG INH ×4 (07:22→19:32)
[2023-09-11] MEDS: SPIRIVA RESPIMAT 2.5 MCG 1 PUFF INH (07:22)
[2023-09-11] MEDS: SYMBICORT 80/4.5 MCG INHALER 2 PUFF INH ×2 (07:22→19:32)
--- NOTE | 2023-09-11 08:29 | W.PN.HOSP.TC ---
Today's Communication/Plan
-
dc planning
Assessment / Plan
Assessment / Plan
Physical Exam
General: Well Developed, Respiratory Distress and Morbidly Obese
HEENT: NormoCephalic, Anicteric, Moist mucous membranes, Atraumatic, PERRLA and Oxygen
Respiratory: Wheezes, Crackles and Decreased Breath Sounds
Cardiac: S1/S2, Irregular Rhythm and Peripheral Edema
GI: Soft, Non Tender and Non Distended
Rectal: No rectal bleeding
Genito-urinary: No hematuria
Musculoskeletal: No Clubbing, No Cyanosis, Edema, Left Lower Extremity and Edema, Right Lower Extremity
Skin: Warm, Dry and Rash
Neuro: AO x 3
Hematologic/Lymphatic: No Lymphadenopathy
Psych: Calm
IMPRESSION:
68 F with h/o AFIB, CHF, COPD on 3 L home O2 and BIPAP dependent intermittently who presents with shortness of breath worsening over 3 days after not receiving diuretics and inhalers at rehab. No fevers or chills. Xray with pulm edema and w/o
consolidation. Lungs with crackles and wheezes. Cough productive of white sputum. No leukocytosis. ECG with afib, rate controlled.
PLAN:
#COPD Exacerbation - Moderate COPD exacerbation most likely exacerbated by CHF exac
Chronic hypoxic respiratory failure with hypercapnia , on 3-4 liters of O2
No worsening hypoxia or sob
- continue bipap 10/5 as needed
- prednisone 40mg iv q 12�transition to prednisone - can dc on steroid taper
- IV diuresis - changed to 2mg Bumex
- continue DuoNeb RTC and prn
- continue long acting inhaled beta agonist and inhaled steroids for now
#CHF exacerbation, acute HFpEF
-apparently some component of non compliance v needing dosage adjustment
- lasix 60 mg iv q 12 - switched to 2mg Bumex (was on 1mg and appears not to have been effective) - should cont monitoring bmp
- Lost weight. - fluid and salt restriction
--EF 60-65% -
No more SOB on rest but ambulatory
#Thrombophilia
#ZOHREH on CPAP
#Morbid obesity. BMI 45
#Paroxysmal a-fib
#AFIB - Rate is moderately controlled
- continue ac with rivaroxaban
- continue metoprolol 25 daily
# Stage 3a chronic kidney disease
Creatinine around 1.2
#TANIA - Chronic TANIA. Hgb around 8 , stable.
- transfuse of hgb < 7
- Normal iron level.
DVT PPX - On rivaroxaban
Full Code
# DC planning
Had long discussion with pt, her sister Micaela( nurse), her son Luis , decision to send to SNF due to pt's ambulatory dysfunction, needing assistance upon going to bathroom ( even few steps- per nurses) and significant SOB upon ambulation. Pt agreed
to try SNF. Appreciate CM efforts.
Total discharge time spent to see the patient, examine the patient, review data and lab results, discuss discharge plan with patient, nursing staff around 65 minutes
Anticipated Discharge: Within 24 hours
Subjective/Interval History
-
Date of Service: September 11, 2023
No events over night
Objective Data
-
Labs:
Laboratory Results
09/11/23
04:48
WBC 5.4
Hgb 8.5 L
Hct 26.6 L
Plt Count 152
Vital Signs:
Vital Signs
Temp Pulse Resp BP Pulse Ox
97.2 F 76 16 143/68 98
09/11/23 07:48 09/11/23 07:25 09/11/23 07:25 09/11/23 06:00 09/11/23 07:25
I&O
09/10/23 09/11/23 09/12/23
06:59 06:59 06:59
Intake Total 1360 / 1360 1815 / 1815
Output Total 1600 / 1600 2850 / 2850
Balance -240 / -240 -1035 / -1035
--- NOTE | 2023-09-11 09:49 | CM ---
Patient from [facility] with Dx COPD exacerbation, CHF exacerbation. O2 2L. BiPAP. PT Eval; recommends skilled rehab. OT recommends skilled v HH. Home O2 Assessment 09/09.
Spoke with Jaylon Reina [facility] SN[facility]; she has all the clinical needed to submit the request to [facility] this morning for request for SNF auth.
Plan [facility] SNF by bariatric ambulance once insurance approves.
[2023-09-11] MEDS: TOPROL XL 25 MG PO (10:07)
[2023-09-11] MEDS: COLACE 100 MG PO (10:07)
[2023-09-11] MEDS: BUMEX 2 MG PO (10:07)
[2023-09-11] MEDS: CLARITIN 10 MG PO (10:07)
[2023-09-11] MEDS: MUCINEX 600 MG PO ×2 (10:08→20:45)
[2023-09-11] MEDS: FEOSOL 325 MG PO (10:11)
[2023-09-11] MEDS: DELTASONE 40 MG PO (10:11)
[2023-09-11] MEDS: LAC HYDRIN, AM LACTIN LOTION 1 APPLIC TOPICAL ×2 (10:11→20:45)
[2023-09-11] MEDS: MIRALAX 17 GRAMS PO (10:11)
[2023-09-11] MEDS: XARELTO 20 MG PO (10:11)
[2023-09-11] MEDS: DESENEX/MITRAZOL/ZEASORB 1 APPLIC TOPICAL ×2 (10:12→20:45)
[2023-09-11] MEDS: ZINC OXIDE OINTMENT 1 APPLIC TOPICAL ×3 (10:12→20:45)
[2023-09-11] MEDS: CITROMA 300 ML PO (15:41)
[2023-09-12] VITALS (15 sets, daily range): BP systolic 95–136; BP diastolic 49–98; PULSE 2–80; O2SAT 99; BMI 44.8
[2023-09-12 05:09] LABS: Hematocrit 27.9 % (37.0-47.0); Hemoglobin 8.7 g/dL (12.0-16.0); Mean Corp Hgb Conc. 31.2 g/dL (33.0-37.0); Mean Corpuscular Hgb 27.4 pg (27.0-31.0); Mean Corpuscular Volume 87.7 fL (81.0-99.0); Platelet Count 146 10^3/uL (130-400); Red Blood Cell Count 3.18 10^6/uL (4.20-5.40); Red Cell Dist. Width 19.5 % (11.5-14.5); White Blood Cell Count 6.3 10^3/uL (4.8-10.8)
--- NOTE | 2023-09-12 06:14 | W.PN.HOSP.TC ---
Today's Communication/Plan
-
.
Assessment / Plan
Assessment / Plan
Physical Exam
General: Well Developed, Respiratory Distress and Morbidly Obese
HEENT: NormoCephalic, Anicteric, Moist mucous membranes, Atraumatic, PERRLA and Oxygen
Respiratory: Wheezes, Crackles and Decreased Breath Sounds
Cardiac: S1/S2, Irregular Rhythm and Peripheral Edema
GI: Soft, Non Tender and Non Distended
Rectal: No rectal bleeding
Genito-urinary: No hematuria
Musculoskeletal: No Clubbing, No Cyanosis, Edema, Left Lower Extremity and Edema, Right Lower Extremity
Skin: Warm, Dry and Rash
Neuro: AO x 3
Hematologic/Lymphatic: No Lymphadenopathy
Psych: Calm
IMPRESSION:
68 F with h/o AFIB, CHF, COPD on 3 L home O2 and BIPAP dependent intermittently who presents with shortness of breath worsening over 3 days after not receiving diuretics and inhalers at rehab. No fevers or chills. Xray with pulm edema and w/o
consolidation. Lungs with crackles and wheezes. Cough productive of white sputum. No leukocytosis. ECG with afib, rate controlled.
PLAN:
#COPD Exacerbation - Moderate COPD exacerbation most likely exacerbated by CHF exac
Chronic hypoxic respiratory failure with hypercapnia , on 3-4 liters of O2
No worsening hypoxia or sob
- continue bipap 10/5 as needed
- prednisone 40mg iv q 12�transition to prednisone - can dc on steroid taper
- IV diuresis - changed to 2mg Bumex
- continue DuoNeb RTC and prn
- continue long acting inhaled beta agonist and inhaled steroids for now
#CHF exacerbation, acute HFpEF
-apparently some component of non compliance v needing dosage adjustment
- lasix 60 mg iv q 12 - switched to 2mg Bumex (was on 1mg and appears not to have been effective) - should cont monitoring bmp
- Lost weight. - fluid and salt restriction
--EF 60-65% -
No more SOB on rest but ambulatory
#Thrombophilia
#ZOHREH , with chronic hypercapnic respiratory failure
She uses Avaps at home
I talked to her pulmonary doctor Dr David Gutiérrez at [place].
#Morbid obesity. BMI 45
#Paroxysmal a-fib
#AFIB - Rate is moderately controlled
- continue ac with rivaroxaban
- continue metoprolol 25 daily
# Stage 3a chronic kidney disease
Creatinine around 1.2
#TANIA - Chronic TANIA. Hgb around 8 , stable.
- transfuse of hgb < 7
- Normal iron level.
DVT PPX - On rivaroxaban
Full Code
# DC planning
Had long discussion with pt, her sister Micaela( nurse), her son Luis , decision to send to SNF due to pt's ambulatory dysfunction, needing assistance upon going to bathroom ( even few steps- per nurses) and significant SOB upon ambulation. Pt agreed
to try SNF. Appreciate CM efforts.
Total time spent to see the patient, examine the patient, review data and lab results, discuss treatment plan with patient, her pulmonary doctor nursing staff around 55 minutes
Anticipated Discharge: Within 24 hours
Subjective/Interval History
-
Date of Service: September 12, 2023
Objective Data
-
Labs:
Laboratory Results
09/12/23
04:36
WBC 6.3
Hgb 8.7 L
Hct 27.9 L
Plt Count 146
Vital Signs:
Vital Signs
Temp Pulse Resp BP Pulse Ox
97.8 F 63 16 117/74 97
09/12/23 03:48 09/12/23 06:00 09/12/23 06:00 09/12/23 06:00 09/12/23 06:00
I&O
09/10/23 09/11/23 09/12/23
06:59 06:59 06:59
Intake Total 1360 / 1360 1815 / 1815 1780 / 1780
Output Total 1600 / 1600 2850 / 2850 1750 / 1750
Balance -240 / -240 -1035 / -1035
[2023-09-12] MEDS: VENTOLIN NEBULES 2.5 MG INH ×4 (07:45→19:23)
[2023-09-12] MEDS: SYMBICORT 80/4.5 MCG INHALER 2 PUFF INH ×2 (07:46→19:23)
[2023-09-12] MEDS: SPIRIVA RESPIMAT 2.5 MCG 1 PUFF INH (07:46)
[2023-09-12] MEDS: CLARITIN 10 MG PO (08:07)
[2023-09-12] MEDS: DELTASONE 40 MG PO (08:07)
[2023-09-12] MEDS: COLACE 100 MG PO (08:07)
[2023-09-12] MEDS: BUMEX 2 MG PO (08:07)
[2023-09-12] MEDS: DESENEX/MITRAZOL/ZEASORB 1 APPLIC TOPICAL ×2 (08:14→19:52)
[2023-09-12] MEDS: MUCINEX 600 MG PO ×2 (08:15→19:52)
[2023-09-12] MEDS: TOPROL XL 25 MG PO (08:15)
[2023-09-12] MEDS: ZINC OXIDE OINTMENT 1 APPLIC TOPICAL ×3 (08:15→19:52)
[2023-09-12] MEDS: XARELTO 20 MG PO (08:15)
[2023-09-12] MEDS: FEOSOL PO (08:15)
[2023-09-12] MEDS: MIRALAX 17 GRAMS PO (08:16)
[2023-09-12] MEDS: LAC HYDRIN, AM LACTIN LOTION 1 APPLIC TOPICAL ×2 (08:16→19:52)
--- NOTE | 2023-09-12 09:53 | CM ---
Patient from [facility] with Dx COPD exacerbation, CHF exacerbation. O2 3L. BiPAP. PT & OT Evals; recommend skilled rehab.
Spoke with Adm Latoshas [facility]; they have not received the auth. Roger pending reference # [id number]. Request she confirm that BiPAP has been ordered for patient at SNF - patient has home BIPAP in place.
Spoke with Roger Brown [facility] (ph [phone]); case was sent to clinical reviewer, requested case be expedited. Maricruz confirms case marked urgent.
Plan [facility] by bariatric ambulance once insurance approves.
--- NOTE | 2023-09-12 15:55 | PTCARENOTE ---
Rec'd pt this AM. Vital signs stable on 3L NC O2 sat 99%. OOB to chair and BSC commode with BM x3 today. remains afib, well controlled. awaiting bed at rehab.
[2023-09-13] VITALS (9 sets, daily range): BP systolic 99–121; BP diastolic 44–64; BMI 44.5
--- NOTE | 2023-09-13 06:32 | W.PN.HOSP.TC ---
Today's Communication/Plan
-
Discharge
Assessment / Plan
Assessment / Plan
Physical Exam
General: Well Developed, Respiratory Distress and Morbidly Obese
HEENT: Normocephalic, Anicteric, Moist mucous membranes, Atraumatic, PERRLA and Oxygen
Respiratory: no Wheezes, better breath sounds.
Cardiac: S1/S2, Irregular Rhythm and Peripheral Edema
GI: Soft, Non Tender and Non Distended
Rectal: No rectal bleeding
Genito-urinary: No hematuria
Musculoskeletal: No Clubbing, No Cyanosis, less Edema, Left Lower Extremity and less Edema, Right Lower Extremity
Skin: Warm, Dry and Rash
Neuro: AO x 3
Psych: Calm
IMPRESSION:
68 F with h/o AFIB, CHF, COPD on 3 L home O2 and BIPAP dependent intermittently who presented with shortness of breath worsening over 3 days after not receiving diuretics and inhalers at rehab. No fevers or chills. Xray with pulm edema and w/o
consolidation. Lungs with crackles and wheezes. Cough productive of white sputum. No leukocytosis. ECG with afib, rate controlled.
PLAN:
#COPD Exacerbation - Moderate COPD exacerbation most likely exacerbated by CHF exac
Chronic hypoxic and hypercapnic respiratory failure with hypercapnia , on 3-4 liters of O2 with Avaps at home
No worsening hypoxia or sob
Good clinical improvement. No wheezes, back to baseline.
- prednisone 40mg , received 5 days.
- IV diuresis - changed to 2mg Bumex
- continue DuoNeb RTC and prn
- continue long acting inhaled beta agonist and inhaled steroids for now.
-Discussed with her primary pulmonary doctor Dr. David Gutiérrez at [facility]
#CHF exacerbation, acute HFpEF
-apparently some component of non compliance v needing dosage adjustment
- lasix 60 mg iv q 12 - switched to 2mg Bumex (was on 1mg and appears not to have been effective) - should cont monitoring bmp
- Lost weight. - fluid and salt restriction
--EF 60-65% -
No more SOB on rest but ambulatory
#Thrombophilia
#ZOHREH on CPAP
#Morbid obesity. BMI 45
#Paroxysmal a-fib
#AFIB - Rate is moderately controlled
- continue ac with rivaroxaban
- continue metoprolol 25 daily
# Stage 3a chronic kidney disease
Creatinine around 1.2
#TANIA - Chronic TANIA. Hgb around 8 , stable.
- transfuse of hgb < 7
- Normal iron level.
DVT PPX - On rivaroxaban
Full Code
# DC planning
Had long discussion with pt, her sister Micaela( nurse), her son Luis , decision to send to SNF due to pt's ambulatory dysfunction, needing assistance upon going to bathroom ( even few steps- per nurses) and significant SOB upon ambulation. Pt agreed
to try SNF. Appreciate CM efforts.
Total discharge time spent to see the patient, examine the patient, review data and lab results, discuss discharge plan with patient, nursing staff around 65 minutes
Anticipated Discharge: Today
Subjective/Interval History
-
Date of Service: September 13, 2023
No complaints
she feels ready to go to SNF
No chest pain
Had normal large BM
No sob
Objective Data
-
Vital Signs:
Vital Signs
Temp Pulse Resp BP Pulse Ox
97.7 F 62 20 121/60 96
09/13/23 03:26 09/13/23 06:01 09/13/23 06:01 09/13/23 06:01 09/13/23 06:01
I&O
09/11/23 09/12/23 09/13/23
06:59 06:59 06:59
Intake Total 1815 / 1815 1780 / 1780 1080 / 1080
Output Total 2850 / 2850 1750 / 1750 2200 / 2200
Balance -1035 / -1035 -1120 / -1120
--- NOTE | 2023-09-13 06:36 | PTCARENOTE ---
No acute events overnight. Tolerated BIPAP while asleep.
[2023-09-13] MEDS: SPIRIVA RESPIMAT 2.5 MCG 1 PUFF INH (07:25)
[2023-09-13] MEDS: SYMBICORT 80/4.5 MCG INHALER 2 PUFF INH (07:25)
[2023-09-13] MEDS: VENTOLIN NEBULES 2.5 MG INH ×3 (07:25→14:54)
[2023-09-13] MEDS: BUMEX 2 MG PO (08:07)
[2023-09-13] MEDS: MUCINEX 600 MG PO (08:07)
[2023-09-13] MEDS: FEOSOL 325 MG PO (08:09)
[2023-09-13] MEDS: TOPROL XL 25 MG PO (08:09)
[2023-09-13] MEDS: COLACE 100 MG PO (08:09)
[2023-09-13] MEDS: XARELTO 20 MG PO (08:09)
[2023-09-13] MEDS: ZINC OXIDE OINTMENT 1 APPLIC TOPICAL ×2 (08:09→17:30)
[2023-09-13] MEDS: DELTASONE 40 MG PO (08:09)
[2023-09-13] MEDS: CLARITIN 10 MG PO (08:09)
[2023-09-13] MEDS: MIRALAX 17 GRAMS PO (08:09)
[2023-09-13] MEDS: DESENEX/MITRAZOL/ZEASORB 1 APPLIC TOPICAL (08:10)
[2023-09-13] MEDS: LAC HYDRIN, AM LACTIN LOTION 1 APPLIC TOPICAL (08:10)
--- NOTE | 2023-09-13 09:05 | PTCARENOTE ---
Patient received from budget counselor. Patient resting comfortably in bed. AAO, VSS. No events noted overnight. No complaints of pain at this time. Currently on 3L N/C. Had questions about BiPAP machine upon discharge, hospitalist aware and going
to contact patients [employer] Inspector/Tester. Possible D/C today. Call duran in reach.
[2023-09-13] MEDS: TYLENOL 650 MG PO (11:05)
--- NOTE | 2023-09-13 11:05 | CM ---
CM following re: discharge planning.
Reviewed pt's chart, met with pt.
According to pt is medically stable to be discharged today. Pt is aware, expressed her agreement with discharge. IMM reviewed, placed in chart, pt has a copy.
CM received a phone call from [facility] social director Lolis and she confirmed she obtained an auth for SNF level of care from Maria Ines/Roger. Auth: [id number], FROM TODAY 09/13/23 TILL 09/18/23. Per Lolis, pt is accepted for
admission to [facility] today and 6:00 p.m. hot die picker time requested.
Transportation is arranged by [facility] hot die picker time 6:00 p.m. PMNC completed and left with
Pt stated she will let her son know about discharge time.
[facility] nursing report: [phone]
Discharge instructions fax: [phone]
D/C plan: [facility].
--- NOTE | 2023-09-13 11:12 | W.DCSUMMARY ---
Discharge Summary
Discharge Data
Date of Admission: 09/06/23
Date of Discharge: 09/13/23
-
Pending Results: No
Hospital Course
68 years old female admitted with shortness of breath. Patient had history of morbid obesity, chronic hypoxic and hypercapnic respiratory failure on nasal oxygen and AVAPS machine at home. Primary credit control manager Dr. David Gutiérrez at [place]
[facility]. Patient was diagnosed with acute on chronic respiratory failure in addition to acute on chronic heart failure with a preserved ejection fraction. Patient received intravenous diuretic. Echocardiogram showed left
ventricular ejection fraction around 60% with trace mitral regurgitation, trace tricuspid regurgitation. Patient had history of chronic obstructive pulmonary disease and had moderate exacerbation. She received a course of oral prednisone in the
hospital with nebulizer treatment. Her breathing status improved and she went back to her baseline. Her primary pulmonary doctor was updated. Patient was counseled regarding risks of obesity. She was encouraged to follow healthy life choices,
she verbalized understanding. Patient was evaluated by physical therapy and recommended [facility] facility placement. Initially, patient declined placement due to previous unpleasant experience at [facility]. Patient met with
case management and after discussing discharge planning with patient and her family, she agreed to go to [facility]. Family helped the patient to make the choice for the facility. Patient remained hemodynamically stable and was
discharged in a stable condition.
Discharge Plan
-
Patient Disposition: Retirement/SNF
Discharge Diagnosis/Procedures: Chronic obstructive pulmonary disease exacerbation/moderate exacerbation
Acute heart failure with preserved ejection fraction. Left ventricular ejection fraction 60%. Trace tricuspid regurgitation, trace mitral regurgitation.
Obstructive sleep apnea/chronic hypoxic and hypercapnic respiratory failure : on nasal cannula and AVAPS at home. We use BiPAP in the hospital with setting : inspiratory pressure 10 -expiratory pressure at 5 with 6 liter O2 flow.
Morbid obesity
Paroxysmal atrial fibrillation
Chronic kidney disease stage IIIa with creatinine around 1.2
Anemia combination of iron deficiency anemia and anemia of chronic disease
Diet: As tolerated
Blood Work: CBC& BMP in 3 days
Instructions: *PCP/Other Clinical Allergist Heart Failure Instructions
Referrals:
David Gutiérrez DO [Non-Admitting Privileges] - in one to two weeks
Fermín Jon DO [Family Provider] -
Prescriptions:
New
acetaminophen 325 mg Tablet
650 mg PO Q4HPRN PRN (Reason: mild pain/MIMS/temp>100.5) Qty: 10 0RF
bumetanide 2 mg Tablet
2 mg PO DAILY Qty: 60 0RF
polyethylene glycol 3350 [HealthyLax] 17 gram Powder In Packet
17 g PO DAILY Qty: 30 0RF
miconazole nitrate [Miconazorb AF] 2 % Powder
1 applic topical BID Qty: 60 0RF
guaifenesin 600 mg Tablet Extended Release 12hr
600 mg PO Q12 Qty: 10 0RF
Continued
acetaminophen 325 mg Tablet
650 mg PO Q6H PRN (Reason: mild pain)
ipratropium-albuterol 0.5 mg-3 mg(2.5 mg base)/3 mL Solution For Nebulization
3 ml INHALATION R Q6 PRN (Reason: sob/wheezing)
ipratropium-albuterol 0.5 mg-3 mg(2.5 mg base)/3 mL Solution For Nebulization
3 ml INHALATION R QID
ammonium lactate 12 % Lotion
1 applic TOPICAL BID
Patient Comments:
09/06/2023: apply to affected leg, for bacterial infection of leg
ferrous sulfate 325 mg (65 mg iron) Tablet
325 mg PO DAILY
docusate sodium 100 mg Capsule
100 mg PO DAILY PRN (Reason: constipation)
metoprolol succinate 25 mg Tablet Extended Release 24 Hr
25 mg PO DAILY
loratadine [Claritin] 10 mg Tablet
10 mg PO DAILY
carboxymethylcellulose sodium [Refresh Plus] 0.5 % Dropperette
1 drp BOTH EYES Q12H PRN (Reason: dry eyes)
sodium chloride 0.65 % Aerosol,[place]
1 spray INTRANASAL PRN PRN (Reason: rhinitis)
rivaroxaban 20 mg Tablet
20 mg PO DAILY
Spiriva Respimat 2.5 mcg/actuation Mist
1 inh INHALATION R DAILY
fluticasone furoate-vilanterol [Breo Ellipta] 100-25 mcg/dose Blister With Device
1 inh INHALATION R DAILY
zinc oxide 20 % Paste
1 ea TOPICAL TID
Patient Comments:
09/06/2023: apply intergluteal cleft
Discontinued
lorazepam 0.5 mg Tablet
0.5 mg PO Q4H PRN (Reason: anxiety)
bumetanide 1 mg Tablet
1 mg PO DAILY
Discharge Orders:
Discharge Patient (As Directed); Ordered 09/13/23
Ordered By: Edna Ruiz
Discharge Date and Time
Print Language: PASHTO
--- NOTE | 2023-09-13 16:35 | PTCARENOTE ---
Report called to Handy ELMORE.
[facility] SNF: [phone]
All questions answered. Made aware of 1800 pickup time.
== END 2023-09-13 18:14 | DRG 291 ==
LOC: IMU 23:52
PROVIDERS: Emergency Medicine; Internal Medicine; ADMITTING PHYSICIAN Internal Medicine; ATTENDING PHYSICIAN Internal Medicine; EMERGENCY PHYSICIAN Student in an Organized Health Care Education/Training Program; FAMILY PHYSICIAN Internal Medicine
PROC: 5A09357 Assistance with Respiratory Ventilation, Less than 24 Consecutive Hours, Continuous Positive Airway Pressure (ICD-10-PCS; 2023-09-06)
DX: I13.0 Hypertensive heart and chronic kidney disease with heart failure and stage 1 through stage 4 chronic kidney disease, or unspecified chronic kidney disease (principal); I50.31 Acute diastolic (congestive) heart failure; J96.21 Acute and chronic respiratory failure with hypoxia; J96.22 Acute and chronic respiratory failure with hypercapnia; J44.1 Chronic obstructive pulmonary disease with (acute) exacerbation; Z68.42 Body mass index [BMI] 45.0-49.9, adult; D68.59 Other primary thrombophilia; N18.31 Chronic kidney disease, stage 3a; D63.8 Anemia in other chronic diseases classified elsewhere; E66.01 Morbid (severe) obesity due to excess calories; I48.0 Paroxysmal atrial fibrillation; G47.33 Obstructive sleep apnea (adult) (pediatric); D50.9 Iron deficiency anemia, unspecified; Z11.52 Encounter for screening for COVID-19; Z79.51 Long term (current) use of inhaled steroids; Z79.01 Long term (current) use of anticoagulants; Z87.891 Personal history of nicotine dependence; Z99.81 Dependence on supplemental oxygen; Z91.199 Patient's noncompliance with other medical treatment and regimen due to unspecified reason
CPT/HCPCS: 71045; 80048; 80053; 82728; 83540; 83550; 83605; 83735; 83880; 84484; 85025; 85027; 85610; 87040; 87811; 93005; 93306; 94640; 94660; 96374; 97116; 97163; 97167; 97530; 97535; 99291